=== PATIENT | male | born 1970 | race Asian ===

== ENCOUNTER 2016-11-16 10:31 | Emergency (ER) | payer OTHER | END 2016-11-16 11:10 | disposition home or self-care (01) | LOC: CED 10:31 | DX: S46.811A Strain of other muscles, fascia and tendons at shoulder and upper arm level, right arm, initial encounter (principal); H66.91 Otitis media, unspecified, right ear; E78.5 Hyperlipidemia, unspecified; X58.XXXA Exposure to other specified factors, initial encounter; Y92.9 Unspecified place or not applicable | CPT/HCPCS: 99282 ==

== ENCOUNTER 2016-11-20 21:40 | Emergency (ER) | payer OTHER ==
--- NOTE | ~2016-11-20 | CT99 ---
[facility] A Service of [facility] RADIOLOGY TEXT RESULTS PATIENT: MARU PRESCOTT JENNY LOCATION: [facility] : 70 UNIT #: [id number] AGE: [address]: Gm Valenzuela SEX: M ORDER DR: [id number] [id number] [facility]. [place], [place] [address] [id number] MR#: [id number] Acc #: [id number] NAME: MARU PRESCOTT : 1970 SEX: M STUDY DATE/TIME: 11/20/2016 23:26 UNIT: [facility] ROOM: STUDY DESCRIPTION: CT Maxillofacial Area W Cont Attending Physician: Gm Valenzuela P.A.-C. Ordering Physician: Gm Valenzuela P.A.-C. Primary Care Physician: Kayla Cosme M.D. MEDICAL IMAGING REPORT This report is preliminary unless electronic signature is present EXAM Facial CT with contrast, 11/20/2016 HISTORY 46-year-old male in the ED complaining of 8-day history of right side toothache. He reports receiving antibiotics over the last 3 days. No details available. TECHNIQUE Facial CT examination was performed with IV contrast from the skull base through the thoracic inlet with multiplanar reconstructed images. This CT exam was performed with one or more of the following radiation dose reduction techniques: automatic exposure control, adjustment of mA and/or kV according to patient size, and iterative reconstruction. FINDINGS No soft tissue abnormality is visible within the neck. No soft tissue abscess is visible adjacent to the maxilla or mandible. No osseous destructive lesion is seen within the maxilla or mandible. Dental images are degraded by metal artifact related to dental fillings. No mass, adenopathy or fluid collection elsewhere within the neck. Salivary glands are unremarkable. No visible vascular abnormality. IMPRESSION Negative contrast enhanced facial CT examination. No evidence of abscess adjacent to the maxilla or mandible. Dictated by... Mario Landon M.D. THIS IS AN ELECTRONICALLY VERIFIED REPORT [facility] A Service of [facility] RADIOLOGY TEXT RESULTS PATIENT: MARU PRESCOTT LOCATION: [facility] : 70 UNIT #: [id number] AGE: [address]: Gm Valenzuela PAC SEX: M ORDER DR: Mario Landon M.D. at 11/21/2016 5:07 PM Nick TD: 11/21/2016 09:29 JOB #: [id number] MEDICAL IMAGING REPORT Page 1 of 1 COPY
[2016-11-20 22:39] LABS: BASOPHIL# 0.1 X10e3 (0-0.3); BASOPHIL% 0.8 % (0-2.5); DIFF IND NO; EOSINOPHIL# 0.2 X10e3 (0-0.7); EOSINOPHIL% 2.4 % (0.0-7.0); HEMATOCRIT 40.5 % (38.0-50.0); HEMOGLOBIN 13.5 gm/dL (13.0-16.0); LYMPHOCYTE# 2.9 X10e3 (1.0-3.5); LYMPHOCYTE% 37.9 % (17.0-45.0); MEAN CELL VOLUME 83.1 FL (83-96); MEAN CORPUSCULAR HEMOGLOBIN 27.7 PG (28-34); MEAN CORPUSCULAR HGB CONC 33.3 g/dL (30-36); MEAN PLATELET VOLUME 9.2 FL (6.5-11.5); MONOCYTE# 0.6 X10e3 (0-1.0); MONOCYTE% 8.2 % (3.0-12.0); NEUTROPHIL# 3.9 X10e3 (1.5-7.1); NEUTROPHIL% 50.7 % (40-75); PLATELET COUNT 215 X10e3 (140-420); RED BLOOD COUNT 4.87 X10e (3.90-5.60); WHITE BLOOD COUNT 7.7 X10e3 (4.0-10.5)
[2016-11-20 23:03] LABS: ALBUMIN SERUM 4.3 g/dL (3.5-5.0); BILIRUBIN, DIRECT 0.1 mg/dL (0.0-0.2); BILIRUBIN,INDIRECT 0.3 mg/dL (0.0-0.9); BILIRUBIN,TOTAL 0.4 mg/dL (0.2-2.0); CALCIUM SERUM 9.1 mg/dL (8.4-10.2); GLOM FILT RATE Estimated 89.9 mL/min (>60); POTASSIUM 3.6 mmol/L (3.5-5.1)
== END 2016-11-21 01:00 | disposition home or self-care (01) ==
LOC: CED 21:40 → CFTX 21:40
PROVIDERS: Physician Assistant
DX: R51 Headache (principal); F17.210 Nicotine dependence, cigarettes, uncomplicated
CPT/HCPCS: 36415; 70487; 80048; 80076; 85025; 96360; 99284; Q9967